=== PATIENT | female | born 1985 | race Caucasian/White ===

== ENCOUNTER 2025-05-30 10:40 | Outpatient (CLI) | payer OTHER | END 2025-05-30 10:41 | disposition home or self-care (01) | LOC: BICRAD 10:40 | PROVIDERS: ATTEND Family Medicine | DX: M25.811 Other specified joint disorders, right shoulder (principal) ==

== ENCOUNTER 2025-08-30 10:45 | Outpatient (CLI) | payer OTHER | END 2025-08-30 10:46 | disposition home or self-care (01) | LOC: BICRAD 10:45 | PROVIDERS: ATTEND Family Medicine | DX: M79.672 Pain in left foot (principal); M19.072 Primary osteoarthritis, left ankle and foot; M77.32 Calcaneal spur, left foot ==